=== PATIENT | male | born 1980 | race African-American/Black ===

== ENCOUNTER 2024-03-26 10:44 | Observation (INO) | payer MEDICAID, OTHER, SELFPAY ==
--- NOTE | ~2024-03-26 | XR_ITS ---
EXAMINATION: XR CHEST CLINICAL INFORMATION: Shortness of breath COMPARISON: None available. TECHNIQUE: 2 views of the chest were obtained. FINDINGS: No focal consolidation, pulmonary edema, or pleural effusion. Normal cardiomediastinal silhouette. XR/XR chest 2V IMPRESSION: Unremarkable examination.
--- NOTE | ~2024-03-26 | CT_ITS ---
EXAMINATION: CT HEAD WITHOUT CONTRAST CLINICAL INFORMATION: Hypertensive, headache. COMPARISON: None TECHNIQUE: Contiguous axial imaging was performed from the skull base to vertex without intravenous administration of contrast. This CT examination was performed using dose optimization techniques as appropriate, variously including the following: *Automated exposure control *Adjustment of mA and/or kV according to patient size (this includes techniques or standardized protocols for targeted exams where dose is matched to indication/reason for exam; i.e. extremities or head) *Use of iterative reconstruction technique DLP: 648 mGy-cm FINDINGS: There is no evidence of acute intracranial hemorrhage or edematous territorial infarction. There is no abnormal attenuation within the brain parenchyma. Mustafa-white matter differentiation is preserved. The ventricles are normal in size and configuration. No evidence for obstructive hydrocephalus. No abnormal mass effect or midline shift. No extra-axial fluid collections. No acute soft tissue or osseous abnormalities. The mastoid air cells and paranasal sinuses are clear. CT/CT head/brain wo IV con IMPRESSION: No evidence of acute intracranial hemorrhage or edematous territorial infarction.
--- NOTE | 2024-03-26 10:46 | ECG_ITS ---
Test Reason : HEADACHE Blood Pressure : / mmHG Vent. Rate : 078 BPM Atrial Rate : 078 BPM P-R Int : 144 ms QRS Dur : 086 ms QT Int : 366 ms P-R-T Axes : 041 019 003 degrees QTc Int : 417 ms Normal sinus rhythm with sinus arrhythmia Moderate voltage criteria for LVH, may be normal variant ( R in aVL , Sokolow-Kirkland ) ST elevation, consider early repolarization, pericarditis, or injury Abnormal ECG No previous ECGs available Referred By: Generic ED Physician Electronically Signed By:King Roblero
[2024-03-26 10:58] VITALS: BP 167/118; PULSE 90; RESP 16; TEMP 36.6; O2SAT 97; BMI 32.1
--- NOTE | 2024-03-26 10:59 | ED_ITS ---
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 Patient was seen at walk-in clinic today and was referred to the emergency department for concern of exertional palpitation with shortness of breath and feeling fatigue with exertion, patient normally have high exercise tolerance without palpitation or SOB. Patient was found to have high blood pressure with LVH on EKG causing strain and diffuse ST elevation likely secondary to LVH and early repolarization. Patient not currently taking medication for high blood pressure, but had history of 1 time ER visits for elevated blood pressure and was given blood pressure medication in the ED but patient never continue to have blood pressure medication. Related Data Allergies Allergy/AdvReac Type Severity Reaction Status Date / Time No Known Allergies Allergy Verified 03/26/24 11:04 Review of Systems 2 Review of Systems: all other systems are reviewed and are negative Constitutional: Reports as per HPI and Reports no additional constitutional complaints Eyes: Reports as per HPI and Reports no additional eye complaints Reports system reviewed and no additional complaints, except as documented Cardiovascular: Reports as per HPI and Reports no additional cardiovascular complaints Respiratory: Reports as per HPI and Reports no additional respiratory complaints Gastrointestinal: Reports as per HPI and Reports no additional gastrointestinal complaints Genitourinary: Reports no additional female genitourinary complaints Musculoskeletal: Reports no additional musculoskeletal complaints Skin/Breast: Reports system reviewed and no additional complaints, except as docu Psychiatric: Reports no additional psychiatric complaints Endocrine: Reports no additional endocrine complaints Hematologic/Lymphatic: Reports no additional hematologic/lymphatic complaints Allergic/Immunologic: Reports no additional allergic/immunologic complaints Reports system reviewed and no additional complaints, except as documented and Reports Abnormal speech present [facility] Social History Social History Advance Directives: No Advance Directives Information Provided: No Physical Exam 2 Vital Signs: Vital Signs: Last Vital Signs Temp 98.0 F 03/26/24 18:06 Pulse 85 03/26/24 18:06 Resp 22 H 03/26/24 18:06 BP 180/122 H 03/26/24 18:06 Pulse Ox 96 03/26/24 18:06 O2 Del Method Room Air 03/26/24 18:06 BMI result Body Mass Index 32.1 Vital signs have been reviewed and appear to be correct. Blood pressure elevated. Heart rate elevated. Respiratory rate normal. Temperature normal. Oxygen saturation normal. Appearance: Alert. Oriented X3. No acute distress. Head: Normal external exam. Normocephalic. Atraumatic. No Locke signs noted. No raccoon eyes noted Eyes: PERRLA. EOMI. Conjunctiva and sclera normal. Eyelids normal. ENT: TM's Normal. Pharynx normal. Uvula midline. Moist mucous membranes. No trismus noted. No drooling noted. No muffled voice noted. Neck: Normal inspection. Neck supple. FROM. No adenopathy. Thyroid Normal. No meningeal signs. No neck mass noted. CVS: Normal heart rate and rhythm. Heart sound normal. No murmurs noted. Pulses normal throughout. Respiratory: No respiratory distress. Painless inspiration. Breath sounds normal. No wheezes/rales/rhonchi noted. Chest nontender. No accessory muscle usage noted or decreased air movement noted. Abdomen: Soft and nontender. Bowel sounds normal in all 4 quadrants. No distention noted. No organomegaly noted. No visible injury noted. Back: No CVA tenderness. Full range of motion noted. Skin: Skin warm and dry. Normal skin color. Normal skin turgor. No rashes/lesions/lacerations noted. Extremities: No lower extremity edema. Extremities exhibit normal range of motion. Extremities nontender. Neuro: Oriented X 3. Cranial nerve exam: II-XII are grossly intact No motor deficit. No sensory deficit. Reflexes normal. Course Course Course Narrative: This is a Rapid Medical Examination (RME) performed by Tyler Wilson PA-C in triage. Full HPI, ROS, assessment and treatment plan per primary provider in the Main ED. 44 yo [place] Creole male presenting to the ER from Urgent Care for evaluation of an abnormal EKG & elevated BP. Initially presented there for chronic headaches for the last 2 years, worse w/ exertion. occurring several times per weak. BP there 167/118 with early repolarizations changes on EKG. He has not been on BP meds in several years. Reports TURCIOS, rapid heart rate and fatigue. On exam he is in no distress, AAO x3. CV: RRR without murmur and lungs are clear. No LE edema. Plan: EKG, trop, CXR, lab workup Reevaluation(s) Reevaluation #1: 44-year-old male with history of hypertension that the patient is not taking medication for High blood pressure found to have high blood pressure with headache. Patient also presented with atypical dyspnea/ palpitation with exertion which is concerning, case discussed with Dr. Roblero who recommended to keep the patient for observation, blood pressure control, no heparin until control blood pressure and re-evaluate the patient's symptoms. patient received 5 mg of metoprolol IV, and Coreg 6.25 mg, aspirin, nitro. Head CT is unremarkable for intracranial bleed, normal neuro exam. Time: 19:31 Medications Administered Discontinued Medications Generic Name Dose Route Start Last Admin Trade Name Freq PRN Reason Stop Dose Admin Aspirin 81 mg 03/26/24 18:49 03/26/24 19:03 Aspirin Enteric Coated 81 Mg Tablet.Dr FAIRCHILD 03/26/24 18:50 81 mg ONCE ONE Administration Metoprolol Tartrate 5 mg 03/26/24 18:49 03/26/24 19:03 Metoprolol Tartrate 5 Mg/5 Ml Vial IVPUSH 03/26/24 18:50 5 mg ONCE ONE Administration Protocol Nitroglycerin 1 inch 03/26/24 18:49 03/26/24 19:06 Nitroglycerin 2 % Oint 1 Gm Packet TRANSDERMA 03/26/24 18:50 1 inch ONCE ONE Administration Medical Decision Making Differential Diagnosis Differential Diagnoses: The differential diagnosis associated with the presentation includes ( Intracranial bleed, hypertensive urgency, hypertensive emergency, ACS, CHF, pneumonia, pneumothorax, pleural effusion, electrolyte derangement, severe anemia.) Admission/Observation Consideration of admission/observation: Escalation of care including admission/observation considered Consult Healthcare Provider Management of the patient was discussed with: Hospitalist ( Dr. Key) Lab Data MDM Lab Attestation statement: I reviewed the patient's lab results. 03/26/24 11:45 03/26/24 11:45 Labs: Lab Results 03/26/24 Range/Units 11:45 WBC 4.5 L (4.8-10.8) X10*3/uL RBC 4.73 (4.60-5.80) X10*6/uL Hgb 14.9 (14.0-18.0) g/dl Hct 42.3 (42.0-52.0) % MCV 89.4 (80.0-98.0) fL MCH 31.5 (27.0-33.0) pg MCHC 35.2 (31.0-36.0) g/dl RDW 12.6 (11.0-16.0) % Plt Count 204 (160-400) X10*3/uL MPV 10.8 (9.4-12.4) fL Immature Gran % (Auto) 0.2 (0.0-0.4) % Neut % (Auto) 41.4 L (45-73) % Lymph % (Auto) 43.6 H (20-40) % [place] % (Auto) 13.3 H (2-11) % Eos % (Auto) 1.1 (0-4) % Baso % (Auto) 0.4 (0-2) % Lymph # (Auto) 1.9 (1.2-4.9) X10*3/uL [place] # (Auto) 0.6 (0.1-1.2) X10*3/uL Eos # (Auto) 0.1 (0.0-0.4) X10*3/uL Baso # (Auto) 0.0 (0.0-0.2) X10*3/uL Abs Immat Gran (auto) 0.01 (0.00-0.03) X10*3/uL Absolute Neuts (auto) 1.8 L (2.0-8.3) x10*3/uL Absolute Nucleated RBC 0.000 (0.0-0.012) X10*3/uL Nucleated RBC % (auto) 0.0 (0.0-0.2) /100WBC PT 11.6 (11.1-13.3) SEC INR 1.0 (0.9-1.1) APTT 27.3 (26.0-36.8) SEC Sodium 139 (135-145) mmol/L Potassium 4.4 (3.3-5.1) mmol/L Chloride 109 H (96-108) mmol/L Carbon Dioxide 21 L (22-29) mmol/L Anion Gap 13 (12-20) BUN 9 (9-16) mg/dL Creatinine 0.84 (0.5-1.4) mg/dL Estim Creat Clear Calc 120.8 Estimated GFR > 60 Random Glucose 99 (60-115) mg/dL Calcium 10.1 (8.4-10.2) mg/dL Magnesium 1.9 (1.6-2.6) mg/dL Total Bilirubin 0.5 (0.0-1.0) mg/dL Direct Bilirubin 0.2 (0.0-0.5) mg/dL AST 28 (5-37) U/L ALT 45 H (0-40) U/L Alkaline Phosphatase 95 (39-117) U/L Troponin I High Sens 3.7 (<3.5-35.0) ng/L B-Natriuretic Peptide < 10 (<100) pg/mL Total Protein 7.8 (6.5-8.0) g/dL Albumin 4.2 (3.5-5.0) g/dL TSH 0.02 L (0.32-4.0) uIU/mL Free T4 1.44 (0.71-1.85) ng/dL Influenza Type A (PCR) NEGATIVE (Negative) Influenza Type B (PCR) NEGATIVE (Negative) RSV RNA Qual (PCR) NEGATIVE (Negative) SARS-CoV-2 RNA (RT-PCR) NEGATIVE (Negative) Independent Interpretation I performed an independent interpretation of an: EKG ( normal sinus rhythm at 70 beats per minute with sinus arrhythmia, LVH, diffuse ST elevation likely early repolarization or secondary to LVH.), Plain X-Ray ( Chest: Unremarkable examination.) and CT Scan ( Head CT: Unremarkable examination.) Radiology Impression Discussion of test interpretation with radiology: I have reviewed the radiologist's reading. Chronic Conditions Patient?s care impacted by: Hypertension Critical Care Time Critical Care Time Critical Care Time: Yes Total Critical Care Time: 60 Attestation: The patient was critically ill with a high probability of imminent or life- threatening deterioration. I spent greater than 30 minutes of discontinuous time evaluating the patient, delivering critical care at the bedside, discussing evaluating data with consultants. Critical care time does not include time spent performing separately billable procedures or teaching. Time spent performing critical care was 60 minutes. Discharge Plan Discharge Clinical Impression: Hypertensive urgency Patient Disposition: Admitted As Inpatient Print Language: Burundian
[2024-03-26 11:50] LABS: MANUAL DIFF FLAG NO
[2024-03-26 11:52] LABS: Basophils Percent Auto 0.4 % (0-2); Eosinophils Absolute Auto 0.1 X10*3/uL (0.0-0.4); Eosinophils Percent Auto 1.1 % (0-4); Hematocrit 42.3 % (42.0-52.0); Hemoglobin 14.9 g/dl (14.0-18.0); Imm Gran Abs Auto 0.01 X10*3/uL (0.00-0.03); Imm Gran Pct Auto 0.2 % (0.0-0.4); Lymphocytes Absolute Auto 1.9 X10*3/uL (1.2-4.9); Lymphocytes Percent Auto 43.6 % (20-40); Mean Corpuscular HGB Conc 35.2 g/dl (31.0-36.0); Mean Corpuscular Hemoglobin 31.5 pg (27.0-33.0); Mean Corpuscular Volume 89.4 fL (80.0-98.0); Mean Platelet Volume 10.8 fL (9.4-12.4); Monocytes Absolute Auto 0.6 X10*3/uL (0.1-1.2); Monocytes Percent Auto 13.3 % (2-11); Neutrophils Absolute Auto 1.8 x10*3/uL (2.0-8.3); Neutrophils Percent Auto 41.4 % (45-73); Platelet Count 204 X10*3/uL (160-400); Red Blood Count 4.73 X10*6/uL (4.60-5.80); Red Cell Distribution Width 12.6 % (11.0-16.0); White Blood Count 4.5 X10*3/uL (4.8-10.8)
[2024-03-26 12:02] LABS: Prothrombin Time 11.6 SEC (11.1-13.3)
[2024-03-26 12:05] LABS: Partial Thromboplastin Time 27.3 SEC (26.0-36.8)
[2024-03-26 12:12] LABS: B Type Natriuretic Peptide < 10 pg/mL (<100)
[2024-03-26 12:14] LABS: Alanine Aminotransferase 45 U/L (0-40); Albumin Level 4.2 g/dL (3.5-5.0); Alkaline Phosphatase 95 U/L (39-117); Anion Gap 13 (12-20); Aspartate Amino Transferase 28 U/L (5-37); Bilirubin Direct 0.2 mg/dL (0.0-0.5); Bilirubin Total 0.5 mg/dL (0.0-1.0); Blood Urea Nitrogen 9 mg/dL (9-16); Calcium 10.1 mg/dL (8.4-10.2); Carbon Dioxide 21 mmol/L (22-29); Chloride 109 mmol/L (96-108); Creatinine Clr Calc Pharmacy 120.8; Estimated Glomerular Filt Rate > 60; Glucose Random 99 mg/dL (60-115); Magnesium 1.9 mg/dL (1.6-2.6); Potassium 4.4 mmol/L (3.3-5.1); Sodium 139 mmol/L (135-145); Total Protein 7.8 g/dL (6.5-8.0)
[2024-03-26 12:15] LABS: Troponin-I High Sensitivity 3.7 ng/L (<3.5-35.0)
[2024-03-26 12:29] LABS: TSH reflex Free T4 0.02 uIU/mL (0.32-4.0)
[2024-03-26 12:33] LABS: Influenza A PCR NEGATIVE (Negative); Influenza B PCR NEGATIVE (Negative); Resp Syncy Virus RNA Qual PCR NEGATIVE (Negative); SARS COV2 PCR INHOUSE NEGATIVE (Negative)
[2024-03-26 13:28] LABS: Free T4 (Free Thyroxine) 1.44 ng/dL (0.71-1.85)
[2024-03-26 18:06] VITALS: BP 180/122; PULSE 85; RESP 22; TEMP 36.7; O2SAT 96
[2024-03-26] MEDS: Aspirin Enteric Coated 81 MG TABLET.DR PO (19:03)
[2024-03-26] MEDS: Metoprolol Tartrate 5 MG/5 ML VIAL IVPUSH (19:03)
[2024-03-26] MEDS: Nitroglycerin 2 % Oint 1 GM Packet 1 INCH TRANSDERMA (19:06)
--- NOTE | 2024-03-26 19:57 | PM.IMHP ---
History of Present Illness Date of Service: 03/26/24 Chief Complaint: Headache, Dyspnea This is a 44-year-old Cook Islander-speaking male with pertinent history of essential hypertension who is not on any prescription medications presents to the emergency department for evaluation of headache and dyspnea with exertion. Patient states he was diagnosed with essential hypertension many years ago but has not seen a doctor and is not taking any prescription medications. Patient started having frontal headache 1 day prior to presentation, constant, nonprogressive, nonradiating and without any relieving factors. He also endorses palpitations with exertion and dyspnea with exertion. No chest discomfort. No orthopnea or PND. Patient denies fever, chills, nausea, vomiting, abdominal pain, vision changes, changes in urinary or bowel habits. In the emergency department, patient's blood pressure was found to be elevated. EKG with changes due to LVH. Cardiology was consulted who requested admission. Review of Systems Constitutional: Constitutional: Reports fatigue Cardiovascular: Cardiovascular: Reports rapid heart rate and Reports dyspnea on exertion Respiratory: Respiratory: Reports no additional respiratory complaints and Reports dyspnea on exertion Gastrointestinal: Gastrointestinal: Reports no additional gastrointestinal complaints Genitourinary: Genitourinary: Reports no additional male genitourinary complaints Musculoskeletal: Musculoskeletal: Reports no additional musculoskeletal complaints Endocrine: Endocrine: Reports fatigue [facility] Medical History Essential hypertension Pertinent family history: No family history of early CAD Social History Advance Directives: No Advance Directives Information Provided: No Meds Allergies Allergy/AdvReac Type Severity Reaction Status Date / Time No Known Allergies Allergy Verified 03/26/24 11:04 Home Medications ?Medication ?Instructions ?Recorded ?Confirmed ?Last Taken ?Type No Known Home Meds 03/26/24 03/26/24 Unknown History Physical Exam Vital Signs and Narrative: Vital Signs: Last Vital Signs Temp 98.0 F 03/26/24 18:06 Pulse 85 03/26/24 18:06 Resp 22 H 03/26/24 18:06 BP 180/122 H 03/26/24 18:06 Pulse Ox 96 03/26/24 18:06 O2 Del Method Room Air 03/26/24 18:06 BMI result Body Mass Index 32.1 Middle-aged male lying in bed in no distress Neck supple, no JVD Regular rate and rhythm, S1-S2 heard Regular breath sounds bilaterally, no wheezing or crackles appreciated Abdomen soft nontender, no guarding, no rigidity Patient is awake, alert and oriented to self, place, time and person ; no focal motor deficit Psych: Normal mood No pedal edema Results Labs 03/26/24 11:45 03/26/24 11:45 Labs: Laboratory Results - last 24 hr 03/26/24 11:45 MCV 89.4 MCH 31.5 MCHC 35.2 RDW 12.6 Plt Count 204 MPV 10.8 Immature Gran % (Auto) 0.2 Neut % (Auto) 41.4 L Lymph % (Auto) 43.6 H [place] % (Auto) 13.3 H Eos % (Auto) 1.1 Baso % (Auto) 0.4 Lymph # (Auto) 1.9 [place] # (Auto) 0.6 Eos # (Auto) 0.1 Baso # (Auto) 0.0 Abs Immat Gran (auto) 0.01 Absolute Neuts (auto) 1.8 L Absolute Nucleated RBC 0.000 Nucleated RBC % (auto) 0.0 PT 11.6 INR 1.0 APTT 27.3 Anion Gap 13 Estim Creat Clear Calc 120.8 Estimated GFR > 60 Random Glucose 99 Calcium 10.1 Magnesium 1.9 Total Bilirubin 0.5 Direct Bilirubin 0.2 AST 28 ALT 45 H Alkaline Phosphatase 95 Troponin I High Sens 3.7 B-Natriuretic Peptide < 10 Total Protein 7.8 Albumin 4.2 TSH 0.02 L Free T4 1.44 Influenza Type A (PCR) NEGATIVE Influenza Type B (PCR) NEGATIVE RSV RNA Qual (PCR) NEGATIVE SARS-CoV-2 RNA (RT-PCR) NEGATIVE Imaging Radiologist's Impressions: Impressions Chest X-Ray 03/26/24 11:15 IMPRESSION: Unremarkable examination. Assessment and Plan (1) Hypertensive urgency: Status: Acute Plan This is a 44-year-old [place] Islander-speaking male with pertinent history of essential hypertension who is not on any prescription medications presents to the emergency department for evaluation of headache and dyspnea with exertion. #. Hypertensive urgency/emergency: Will admit patient for observation. Cardiology was consulted from the ER, appreciate assistance. Initiating amlodipine and Coreg. Trend troponin. Obtaining echocardiogram DVT prophylaxis: Lovenox Full code Quality Stroke Does the patient have a stroke diagnosis?: No VTE Prior VTE?: No VTE Risk Level:: Medical - moderate - high VTE Device Contraindication: Treatment Not Indicated VTE Drug Contraindication: N/A - Med Ordered
[2024-03-26 20:00] VITALS: BP 155/114; PULSE 79; RESP 20; TEMP 36.7; O2SAT 98
--- NOTE | 2024-03-26 20:20 | PHA.MEDREC ---
Pharmacy Consult ? Medication Reconciliation Pharmacy has completed the medication reconciliation. Patient reports no medicaitons at home. Nurys Toussaint, ChiaraD
[2024-03-26 20:48] VITALS: BP 164/111; PULSE 86
[2024-03-26] MEDS: Enoxaparin Sodium 40 MG/0.4 ML SYRINGE SUBCUT (20:48)
[2024-03-26] MEDS: carvediloL 6.25 MG TABLET PO (20:48)
[2024-03-26 22:51] VITALS: BP 137/95; PULSE 72; RESP 18; TEMP 36.6; O2SAT 97
--- NOTE | 2024-03-26 23:55 | PC.NURSE ---
this rn assumed care of pt, pt resting in madrigal stretcher, normal sinus on tele 78-80bpm. no acute distress noted.
[2024-03-27] VITALS (13 sets, daily range): BP systolic 104–154; BP diastolic 64–105; PULSE 74–90; RESP 14–22; TEMP 36.2–37.1; O2SAT 94–97
--- NOTE | 2024-03-27 04:18 | PC.NURSE ---
pt resting in stretcher, no acute distress noted, eyes closed, respirations even and unlabored.
--- NOTE | 2024-03-27 06:12 | PC.NURSE ---
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 pt reports he is feeling better. pt normal sinus on tele 80-84bpm. pt returned phone after having it charge at desk.
[2024-03-27 06:32] LABS: MANUAL DIFF FLAG NO
[2024-03-27 06:39] LABS: Basophils Percent Auto 0.6 % (0-2); Eosinophils Absolute Auto 0.1 X10*3/uL (0.0-0.4); Hematocrit 42.3 % (42.0-52.0); Hemoglobin 14.6 g/dl (14.0-18.0); Imm Gran Abs Auto 0.01 X10*3/uL (0.00-0.03); Imm Gran Pct Auto 0.3 % (0.0-0.4); Lymphocytes Absolute Auto 1.7 X10*3/uL (1.2-4.9); Lymphocytes Percent Auto 48.8 % (20-40); Mean Corpuscular HGB Conc 34.5 g/dl (31.0-36.0); Mean Corpuscular Hemoglobin 31.6 pg (27.0-33.0); Mean Corpuscular Volume 91.6 fL (80.0-98.0); Mean Platelet Volume 11.6 fL (9.4-12.4); Monocytes Absolute Auto 0.6 X10*3/uL (0.1-1.2); Neutrophils Absolute Auto 1.1 x10*3/uL (2.0-8.3); Neutrophils Percent Auto 32.3 % (45-73); Platelet Count 195 X10*3/uL (160-400); Red Blood Count 4.62 X10*6/uL (4.60-5.80); Red Cell Distribution Width 12.7 % (11.0-16.0); White Blood Count 3.4 X10*3/uL (4.8-10.8)
[2024-03-27 06:49] LABS: Anion Gap 13 (12-20); Blood Urea Nitrogen 14 mg/dL (9-16); Calcium 9.5 mg/dL (8.4-10.2); Carbon Dioxide 24 mmol/L (22-29); Chloride 107 mmol/L (96-108); Creatinine Clr Calc Pharmacy 120.8; Estimated Glomerular Filt Rate > 60; Glucose Random 94 mg/dL (60-115); Potassium 4.1 mmol/L (3.3-5.1); Sodium 140 mmol/L (135-145)
[2024-03-27 06:54] LABS: Troponin-I High Sensitivity 4.8 ng/L (<3.5-35.0)
--- NOTE | 2024-03-27 07:00 | CA_ITS ---
Transthoracic Echocardiogram Patient (Last, First, Middle): Neelima Whitney, Gender: Male Date of : 1980 Age: 44 Procedure Date: 03/27/2024 Procedure Type: Transthoracic Echocardiogram Location[place] [facility] [place] Height: 167.64 cm Weight: 93.44 kg BSA: 2.03 m2 Heart Rate: bpm BP: 155 / 114 mmHg Bee Tender: Referring MD: Gianna Key MD Symptoms: hypertensive emergency Study Quality: Good ECG Rhythm: Sinus Conclusions: - Normal left ventricular size and systolic function. There is severely increased left ventricular wall thickness. The visually estimated ejection fraction is between 65-70%. - Normal right ventricular cavity size and systolic function. - The left atrium is mildly dilated. Findings Left Ventricle Normal left ventricular size and systolic function. There is severely increased left ventricular wall thickness. The visually estimated ejection fraction is between 65-70%. There is no evidence of regional wall motion abnormalities. Abnormal diastolic function is noted. Spectral Doppler is indicative of an impaired relaxation filling pattern. Normal left ventricular filling pressures. Right Ventricle Normal right ventricular cavity size and systolic function. Atria The left atrium is mildly dilated. Aortic Valve Normal aortic valve structure and function. There is no aortic valve stenosis. There is no aortic valve regurgitation. Mitral Valve Normal mitral valve structure and function. There is trace mitral valve regurgitation. There is no mitral valve stenosis. Pulmonic Valve The pulmonic valve is normal. There is trace pulmonic valve regurgitation. Tricuspid Valve Normal tricuspid valve structure. There is trace tricuspid valve regurgitation. Normal right atrial pressure. There is no evidence of pulmonary hypertension. Great Vessels All visible segments of the aorta are normal in size. The visualized portions of the pulmonary artery and branches are normal. Venous The inferior vena cava is normal in size and collapses greater than 50% with inspiration. Pericardium/Pleural There is no evidence of pericardial effusion. Prior Study Comparison No prior study available for comparison. Measurements 2D Linear Measurements IVSd: 1.52 0.6-0.9/0.6-1.0 cm LVIDd: 3.69 3.9-5.3/4.2-5.9 cm LVIDd Index: 1.82 2.4-3.2/2.2-3.1 cm/m2 LVIDs: 2.46 2.0-3.6 cm LVPWd: 1.53 0.7-1.1 cm Ao Root: 3.50 2.1-3.5 cm LA Diam: 3.10 2.7-3.8/3.0-4.0 cm LAIDs Index: 1.53 1.5-2.3 cm/m2 LV Mass: 266.18 67-162/88-224 g LV Mass Index: 131.12 43-95/49-115 g/m2 LVOT Diam: 2.50 3.0+(-)1.3 cm Mitral Valve MV Pk E: 0.57 MV PK A: 0.67 MV Decel Time: 162.00 E/A: 0.90 E'Lateral: 10.00 E'Medial: 5.44 E/E' Med: 10.50 E/E' Lat: 5.70 PHT: 48.00 MVA PHT: 4.58 Decel Bailey: 3.51 Aortic Valve AoV Pk Gino: 1.26 AoV Mn Gino: 0.91 AoV VTI: 0.25 AoV Pk Grad: 6.00 Aov Mn Grad: 4.00 ISABELA Cont.VTI: 3.66 LVOT LVOT Pk Gino: 1.02 LVOT Mn Gino: 0.66 LVOT VTI: 0.19 LVOT Pk Grad: 4.00 LVOT Mn Grad: 2.00 LVOT Diam: 2.50 LVOT Area: 4.91 Diastolic Function MV Pk E: 0.57 MV Pk A: 0.67 E/A: 0.90 E'Medial: 5.44 E/E' Med: 10.50 E' Laterial: 10.00 E/E' Lat: 5.70 Right Ventricle TAPSE (mm): 19.00 TVS' Gino: 10.00 Tricuspid Valve TR Pk Gino: 2.48 TR Pk Grad: 25.00 RA Press: 3.00 RVSP: 28.00 Great Vessels Aorta Ao Root-2D: 3.50 2.0-3.7 cm Ao Asc: 3.30 2.1-3.4 cm Pulmonary Valve PV Pk Gino: 0.92 Peak PV Grad: 3.00 Updated in Other Vendor System with Status of Final King Roblero MD electronically signed on 03/27/2024 1:14:02 PM with status of Final
[2024-03-27] MEDS: amLODIPine Besylate 5 MG TABLET PO (08:46)
[2024-03-27] MEDS: carvediloL 6.25 MG TABLET PO ×2 (08:47→20:27)
[2024-03-27] MEDS: 0.9 % Sodium Chloride Flush 3 ML SYRINGE IVFLUSH (08:49)
--- NOTE | 2024-03-27 11:17 | P.CONCA_ITS ---
History of Present Illness History of Present Illness Date of Service: 03/27/24 Requesting physician: Jimi Mcnally Chief complaint: Headache, Dyspnea Narrative: 44-year-old gentleman here for headache and dyspnea with exertion. He has been noticed to have significantly elevated blood pressure. He said he was told at some stage that he has high blood pressure but was not started on any medications in the past. His EKGs showing every repolarization. Troponins are negative. Denying chest discomfort. His BNP is less than 10. He was started on amlodipine 5 mg and carvedilol 6.25 mg twice a day yesterday. Blood pressure still continues to be 150/105. PMFSH Past Medical History Medical History Essential hypertension Social History Social History Household Members: Friend(s) Housing: House Do you presently have visiting nurse or other home services: No Patient Tobacco Use Status: Never used Tobacco Meds Allergies Allergy/AdvReac Type Severity Reaction Status Date / Time No Known Allergies Allergy Verified 03/26/24 11:04 Active Medications: Current Medications Acetaminophen (Acetaminophen 325 Mg Tablet) 650 mg PO Q6H PRN PRN Reason: Pain, Mild (Pain Scale 1-3) Amlodipine Besylate (Amlodipine Besylate 5 Mg Tablet) 5 mg PO DAILY [facility]; Protocol Last Admin: 03/27/24 08:46 Dose: 5 mg Carvedilol (Carvedilol 6.25 Mg Tablet) 6.25 mg PO BID [facility]; Protocol Last Admin: 03/27/24 08:47 Dose: 6.25 mg Enoxaparin Sodium (Enoxaparin Sodium 40 Mg/0.4 Ml Syringe) 40 mg SUBCUT Q24H [facility] Last Admin: 03/26/24 20:48 Dose: 40 mg Melatonin (Melatonin 3 Mg Tablet) 6 mg PO BEDTIME PRN PRN Reason: Insomnia Ondansetron HCl (Ondansetron Hcl 4 Mg/2 Ml Vial) 4 mg IVPUSH Q8H PRN PRN Reason: Nausea and Vomiting Sodium Chloride (0.9 % Sodium Chloride Flush 3 Ml Syringe) 3 ml IVFLUSH QSHIFT [facility] Last Admin: 03/27/24 08:49 Dose: 3 ml Home Medications ?Medication ?Instructions ?Recorded ?Confirmed ?Last Taken ?Type No Known Home Meds 03/26/24 03/26/24 Unknown History Physical Exam 2 Vital Signs: Vital Signs: Last Vital Signs Temp 98 F 03/27/24 08:03 Pulse 82 03/27/24 08:47 Resp 18 03/27/24 08:20 BP 150/105 H 03/27/24 08:47 Pulse Ox 96 03/27/24 08:20 O2 Del Method Room Air 03/27/24 08:20 BMI result Body Mass Index 32.1 GENERAL APPEARANCE: in no acute distress, pleasant. NECK: no carotid bruit, no jugular venous distention. SKIN: no suspicious lesions, warm and dry. HEART: no murmurs, regular rate and rhythm. LUNGS: clear to auscultation bilaterally. ABDOMEN: soft, nontender. EXTREMITIES: no edema. PERIPHERAL PULSES: equal. NEUROLOGIC: No gross deficits, AAO X 3 Objective Labs and Meds 03/27/24 05:44 03/27/24 05:44 Lab results: Laboratory Results - last 24 hr 03/26/24 03/27/24 11:45 05:44 WBC 4.5 L 3.4 L RBC 4.73 4.62 Hgb 14.9 14.6 Hct 42.3 42.3 MCV 89.4 91.6 MCH 31.5 31.6 MCHC 35.2 34.5 RDW 12.6 12.7 Plt Count 204 195 MPV 10.8 11.6 Immature Gran % (Auto) 0.2 0.3 Neut % (Auto) 41.4 L 32.3 L Lymph % (Auto) 43.6 H 48.8 H [place] % (Auto) 13.3 H 16.0 H Eos % (Auto) 1.1 2.0 Baso % (Auto) 0.4 0.6 Lymph # (Auto) 1.9 1.7 [place] # (Auto) 0.6 0.6 Eos # (Auto) 0.1 0.1 Baso # (Auto) 0.0 0.0 Abs Immat Gran (auto) 0.01 0.01 Absolute Neuts (auto) 1.8 L 1.1 L Absolute Nucleated RBC 0.000 0.000 Nucleated RBC % (auto) 0.0 0.0 PT 11.6 INR 1.0 APTT 27.3 Sodium 139 140 Potassium 4.4 4.1 Chloride 109 H 107 Carbon Dioxide 21 L 24 Anion Gap 13 13 BUN 9 14 Creatinine 0.84 0.84 Estim Creat Clear Calc 120.8 120.8 Estimated GFR > 60 > 60 Random Glucose 99 94 Calcium 10.1 9.5 Magnesium 1.9 Total Bilirubin 0.5 Direct Bilirubin 0.2 AST 28 ALT 45 H Alkaline Phosphatase 95 Troponin I High Sens 3.7 4.8 B-Natriuretic Peptide < 10 Total Protein 7.8 Albumin 4.2 TSH 0.02 L Free T4 1.44 Influenza Type A (PCR) NEGATIVE Influenza Type B (PCR) NEGATIVE RSV RNA Qual (PCR) NEGATIVE SARS-CoV-2 RNA (RT-PCR) NEGATIVE Imaging Radiologist's impression: Impressions Chest X-Ray 03/26/24 11:15 IMPRESSION: Unremarkable examination. Head CT 03/26/24 19:23 IMPRESSION: No evidence of acute intracranial hemorrhage or edematous territorial infarction. Assessment and Plan (1) Essential hypertension: Status: Acute (2) Hypertensive urgency: Status: Acute Plan 44-year-old gentleman presenting with headache and dyspnea with activity. He has significantly elevated blood pressure. Clinically not in heart failure. BNP is normal. Troponins are also negative. EKGs showing already repolarization. Echocardiography will be reviewed in detail but clearly shows significant left ventricular hypertrophy pointing to her uncontrolled hypertension for long time. He is on carvedilol and amlodipine. Adding hydrochlorothiazide 25 mg daily. We will control his blood pressure and then reassess him. He may need exercise stress testing depending on his symptoms once blood pressure is well controlled. We advised him to cut back on salt and comply with a low-salt diet. Thank you for allowing me to participate in the care of your patient. Please feel free to contact me if you have any questions. Procedures Date of Service Date of Service: 03/27/24
[2024-03-27] MEDS: hydroCHLOROthiazide 25 MG TABLET PO (11:56)
--- NOTE | 2024-03-27 13:03 | HO.PM.IMPN ---
Subjective Subjective Date of Service: 03/27/24 Interval History: sob improved Physical Exam Vital Signs: Vital Signs: Last Vital Signs Temp 98.5 F 03/27/24 11:27 Pulse 76 03/27/24 11:27 Resp 20 03/27/24 11:27 BP 147/94 H 03/27/24 11:56 Pulse Ox 96 03/27/24 11:27 O2 Del Method Room Air 03/27/24 11:27 BMI result Body Mass Index 32.1 General: AO X 3, no acute distress Resp: CTA bilateral, no accessory muscles used CVS: S1,S2,RRR GI: soft, non tender, non distended Neuro: motor grossly intact, alert Psych: appropriate affect, appropriate insight Objective Data Active Medications Acetaminophen (Acetaminophen 325 Mg Tablet) 650 mg PO Q6H PRN PRN Reason: Pain, Mild (Pain Scale 1-3) Amlodipine Besylate (Amlodipine Besylate 5 Mg Tablet) 5 mg PO DAILY [facility]; Protocol Last Admin: 03/27/24 08:46 Dose: 5 mg Documented By: RHIANNON Carvedilol (Carvedilol 6.25 Mg Tablet) 6.25 mg PO BID [facility]; Protocol Last Admin: 03/27/24 08:47 Dose: 6.25 mg Documented By: RHIANNON Enoxaparin Sodium (Enoxaparin Sodium 40 Mg/0.4 Ml Syringe) 40 mg SUBCUT Q24H [facility] Last Admin: 03/26/24 20:48 Dose: 40 mg Documented By: CABREGAN Hydrochlorothiazide (Hydrochlorothiazide 25 Mg Tablet) 25 mg PO DAILY [facility]; Protocol Last Admin: 03/27/24 11:56 Dose: 25 mg Documented By: RONNELL Melatonin (Melatonin 3 Mg Tablet) 6 mg PO BEDTIME PRN PRN Reason: Insomnia Ondansetron HCl (Ondansetron Hcl 4 Mg/2 Ml Vial) 4 mg IVPUSH Q8H PRN PRN Reason: Nausea and Vomiting Sodium Chloride (0.9 % Sodium Chloride Flush 3 Ml Syringe) 3 ml IVFLUSH QSHIFT [facility] Last Admin: 03/27/24 08:49 Dose: 3 ml Documented By: RHIANNON Labs 03/27/24 05:44 03/27/24 05:44 Labs: Laboratory Results - last 24 hr 03/26/24 03/27/24 11:45 05:44 MCV 91.6 MCH 31.6 MCHC 34.5 RDW 12.7 Plt Count 195 MPV 11.6 Immature Gran % (Auto) 0.3 Neut % (Auto) 32.3 L Lymph % (Auto) 48.8 H [place] % (Auto) 16.0 H Eos % (Auto) 2.0 Baso % (Auto) 0.6 Lymph # (Auto) 1.7 [place] # (Auto) 0.6 Eos # (Auto) 0.1 Baso # (Auto) 0.0 Abs Immat Gran (auto) 0.01 Absolute Neuts (auto) 1.1 L Absolute Nucleated RBC 0.000 Nucleated RBC % (auto) 0.0 Anion Gap 13 Estim Creat Clear Calc 120.8 Estimated GFR > 60 Random Glucose 94 Calcium 9.5 Troponin I High Sens 4.8 Free T4 1.44 Assessment and Plan (1) Hypertensive urgency: Status: Acute Plan 44M PMH htn presented with sob Uncontrolled hypertension Started on amlodipine 5 mg, carvedilol 6.25 mg b.i.d., hydrochlorothiazide 25 mg daily Echocardiogram with signs of longstanding hypertension with LVH, follow-up official report Plan to continue to observe for response to medications overnight DVT prophylaxis with Lovenox Full Code reason for continued hospitalization: Monitoring for response to medications. Quality Stroke Does the patient have a stroke diagnosis?: No VTE Prior VTE?: No VTE Risk Level:: Medical - moderate - high VTE Device Contraindication: Treatment Not Indicated VTE Drug Contraindication: N/A - Med Ordered
--- NOTE | 2024-03-27 14:40 | MHC.CM.PN ---
GUADALUPE 03/27. This CM met with pt with assistance of donor services manager. Pt self-care, lives at home alone, but has roommates. New HCP completed with pt, now on file. Pt will need assistance with transportation home. No PCP, local PCP list given to pt.
[2024-03-27] MEDS: Enoxaparin Sodium 40 MG/0.4 ML SYRINGE SUBCUT (20:27)
[2024-03-28] MEDS: 0.9 % Sodium Chloride Flush 3 ML SYRINGE IVFLUSH ×2 (00:55→08:58)
[2024-03-28 03:42] VITALS: BP 111/72; PULSE 80; RESP 20; TEMP 36.7; O2SAT 99
[2024-03-28 07:25] VITALS: BP 116/79; PULSE 77; RESP 18; TEMP 36.6; O2SAT 96
[2024-03-28] MEDS: hydroCHLOROthiazide 25 MG TABLET PO (08:57)
[2024-03-28] MEDS: carvediloL 6.25 MG TABLET PO (08:58)
[2024-03-28] MEDS: amLODIPine Besylate 5 MG TABLET PO (08:58)
--- NOTE | 2024-03-28 09:01 | P.DS_ITS ---
DS: Providers Provider Date of Service: 03/28/24 Date of admission: 03/26/24 19:55 Primary care physician: [facility] Consults: 03/26/24 19:55 Consult to Cardiology Routine Consulting Provider: [facility] Cardiovascular Services Reason for consultation: hypertensive urgency/emergency Has provider been notified: Yes DS: Diagnosis Discharge Diagnosis (1) Hypertensive urgency: Status: Acute DS: Summary Hospital Course Hospital Course: from initial hpi: 44-year-old [place]ian-speaking male with pertinent history of essential hypertension who is not on any prescription medications presents to the emergency department for evaluation of headache and dyspnea with exertion. Patient states he was diagnosed with essential hypertension many years ago but has not seen a doctor and is not taking any prescription medications. Patient started having frontal headache 1 day prior to presentation, constant, nonprogressive, nonradiating and without any relieving factors. He also endorses palpitations with exertion and dyspnea with exertion. No chest discomfort. No orthopnea or PND. Patient denies fever, chills, nausea, vomiting, abdominal pain, vision changes, changes in urinary or bowel habits. In the emergency department, patient's blood pressure was found to be elevated. EKG with changes due to LVH. Cardiology was consulted who requested admission. hospital course: Patient was admitted for uncontrolled hypertension. He was started on amlodipine 5 mg daily, carvedilol 6.25 mg b.i.d., HCTZ 25 mg daily. Symptoms resolved and blood pressure significantly improved. Echocardiogram showed signs of longstanding hypertension with normal EF and LVH. Patient will be discharged home, he is instructed to obtain and follow up with primary care physician. Time Attestation Discharge Coordination Time (in mins): 35 Quality: Safe Use of Opioids Does Pt have an Active Cancer Diagnosis on the Problem List?: No Quality: Stroke Does the patient have a stroke diagnosis?: No Physical Exam Vital Signs: Vital Signs: Last Vital Signs Temp 97.9 F 03/28/24 07:25 Pulse 77 03/28/24 07:25 Resp 18 03/28/24 07:25 BP 116/79 03/28/24 07:25 Pulse Ox 96 03/28/24 07:25 O2 Del Method Room Air 03/28/24 07:25 BMI result Body Mass Index 32.1 General: AO X 3, no acute distress Resp: CTA bilateral, no accessory muscles used CVS: S1,S2,RRR GI: soft, non tender, non distended Neuro: motor grossly intact, alert Psych: appropriate affect, appropriate insight Discharge Plan Discharge Anticipated Discharge Date/Time: 03/28/24 09:00 Patient Disposition: Home, Self-Care Discharge Diagnosis: htn, lvh Referrals: [facility] [Primary Care Provider] - 1 Week Discharge Medications: New carvedilol 6.25 mg Tablet 6.25 mg PO BID Qty: 180 0RF Protocol: Hold for SBP/HR < HOLD for SBP < : 90 HOLD for HR < : 60 amlodipine 5 mg Tablet 5 mg PO DAILY Qty: 90 0RF Protocol: Hold for SBP< HOLD for SBP < : 90 hydrochlorothiazide 25 mg Tablet 25 mg PO DAILY Qty: 90 0RF Protocol: Hold for SBP< HOLD for SBP < : 90 Discharge Orders: Discharge Order (Routine); Ordered 03/28/24 Ordered By: Jimi Mcnally Diet: Advance to usual diet Activity on Discharge: As tolerated Stand Alone Forms: Patient Portal Discharge page Print Language: Ghanaian Care Plan Goals: manage htn Health Concerns: htn Plan of Treatment: start meds as prescribed, start seeing a primary care physician Assessment: see above
--- NOTE | 2024-03-28 09:44 | MHC.CM.PN ---
Addendum entered by Francisca Ulloa 03/28/24 09:56: Pts family came in and are transporting him home. Original Note: Pt is medically cleared for discharge home self-care, pt given a bus pass to transport home.
== END 2024-03-28 10:35 | disposition home or self-care (01) ==
LOC: HO.ED 19:46 → HO.EDOVER 20:01 → HO.IMC 03-27 07:13
PROVIDERS: Physician Assistant; Admitting Provider Student in an Organized Health Care Education/Training Program; Emergency Provider Emergency Medicine; Visit Provider Internal Medicine
DX: I16.0 Hypertensive urgency (principal); I10 Essential (primary) hypertension; R51.9 Headache, unspecified; R06.02 Shortness of breath; R53.83 Other fatigue; R06.00 Dyspnea, unspecified; R00.2 Palpitations; Z03.818 Encounter for observation for suspected exposure to other biological agents ruled out
CPT/HCPCS: 0241U; 36415; 70450; 71046; 80048; 80076; 83735; 83880; 84439; 84443; 84484; 85025; 85610; 85730; 93005; 93306; 96372; 96374; 99222; 99285; J1650; Q9957

== ENCOUNTER → 2024-03-26 10:46 | Outpatient (BNV) | payer SELFPAY | PROVIDERS: Visit Provider Internal Medicine Cardiovascular Disease | DX: R51.9 Headache, unspecified (principal) | CPT/HCPCS: 93010 ==

== ENCOUNTER 2024-03-26 19:55 | Outpatient (BNV) | payer MEDICAID, SELFPAY | END 2024-03-27 07:00 | PROVIDERS: Admitting Provider Student in an Organized Health Care Education/Training Program; Emergency Provider Emergency Medicine; Visit Provider Internal Medicine Cardiovascular Disease | DX: I16.1 Hypertensive emergency (principal) | CPT/HCPCS: 93306 ==

== ENCOUNTER → 2024-03-26 19:55 | Outpatient (BNV) | payer SELFPAY | PROVIDERS: Admitting Provider Student in an Organized Health Care Education/Training Program; Emergency Provider Emergency Medicine; Visit Provider Internal Medicine Cardiovascular Disease | DX: I10 Essential (primary) hypertension (principal); I16.0 Hypertensive urgency | CPT/HCPCS: 99223 ==

== ENCOUNTER → 2024-03-26 19:55 | Outpatient (BNV) | payer SELFPAY | PROVIDERS: Admitting Provider Student in an Organized Health Care Education/Training Program; Emergency Provider Emergency Medicine; Visit Provider Student in an Organized Health Care Education/Training Program | DX: I16.0 Hypertensive urgency (principal) | CPT/HCPCS: 99222; 99232; 99239 ==